=== PATIENT | female | born 1995 | race Caucasian/White ===

== ENCOUNTER 2022-03-31 14:09 | Emergency (ER) | payer SELFPAY ==
[2022-03-31 14:28] VITALS: BP 151/80; PULSE 89; TEMP 99; BMI 26.9
== END 2022-03-31 15:15 | disposition home or self-care (01) ==
LOC: FER 14:09
DX: S93.401A Sprain of unspecified ligament of right ankle, initial encounter (principal); X50.0XXA Overexertion from strenuous movement or load, initial encounter
CPT/HCPCS: 73610-TC-RT-FY; 73630-TC-RT-FY; 99283-25